=== PATIENT | female | born 1945 | race American Indian/Alaskan Native ===

== ENCOUNTER 2017-04-29 13:27 | Day surgery (SDC) | payer MEDICARE ==
--- NOTE | 2017-04-29 14:47 | Anesthesia Day of Surgery ---
Anesthesia Day of Surgery - Day of Surgery Patient Examined: Yes Patient H&P Reviewed: Yes Patient is NPO: Yes
--- NOTE | 2017-04-29 14:47 | Anesthesia Consultation ---
Anesthesia Consult and Med Hx Date of service: 04/29/17 - Airway Anesthetic Teeth Evaluation: Dentures ROM Head & Neck: Adequate Mental/Hyoid Distance: Adequate Mallampati Class: Class I Intubation Access Assessment: Good - Pulmonary Exam CTA: Yes - Cardiac Exam Cardiac Exam: RRR - Pre-Operative Health Status ASA Pre-Surgery Classification: ASA2 Proposed Anesthetic Plan: MAC - Cardiovascular System Hx Hypertension: Yes Hx Heart Murmur: Yes - Gastrointestinal Hx Gastroesophageal Reflux Disease: Yes - Additional Comments Anesthesia Medical History Comments: hypercholesterolemia
[2017-04-29] MEDS ORDERED: PEPCID IV ONE (14:53)
[2017-04-29] MEDS ORDERED: PEPCID IV NR (15:00)
[2017-04-29] MEDS ORDERED: NACL 0.9% 1000 ML 1,000 ML IV SCH (15:00)
[2017-04-29] MEDS ORDERED: DIPRIVAN 10 MG/ML IV ONE (15:41)
[2017-04-29 16:28] VITALS: BP 144/76
--- NOTE | 2017-04-29 16:43 | Operative Report ---
Operative Report Operative Report: Date: 04/29/2017 Operative Report: Date of procedure: 04/29/2017 Procedure: Esophagogastroduodenoscopy with wire guided Savory dilation of the esophagus. Attending physician: David Klein MD Insulator Tester: David Klein MD Indication: Patient is a 71 -year-old fmale who presented with a history of dysphagia and gerd. An upper endoscopy is done to evaluate patient, so that treatment may be directed based on the findings. Consent: Informed consent was obtained after advising the patient and family regarding nature of this procedure, its indications, potential benefits as well as possible complications including but not limited to bleeding perforation and adverse reaction to medication, infection as well as other cardiopulmonary complications. An informed written and verbal consent was then obtained after due opportunity was provided for questions and answers. Monitoring: Patient was monitored continuously with pulse oximetry and electrocardiographic recordings as well as blood pressure recordings. Vital signs remained stable throughout this procedure with no untoward events. Preoperative assessment: Patient was assessed immediately prior to this procedure for capacity to tolerate monitored anesthesia care and moderate sedation as well as general anesthesia. Patient's ASA classification is 3, Mallampati class is 2, Hyomental distance is 3. Instrument: [employer] video endoscope Controlled radial expansion balloon up to 8 mm Medications: Propofol given intravenously in divided doses. For details please refer to anesthesia records. Description of procedure: Patient was placed in the left lateral decubitus position after achieving sedation, the endoscope was introduced into the esophagus under direct vision and advanced into the stomach. It was further advanced to the second portion of the duodenum. It was subsequently withdrawn with careful inspection of all mucosal surfaces with the following findings. Findings: Esophagus was mildly tortuous. There was a gastroesophageal junction ring which was dilated with a 45 [place] savory dilator using a guidewire. There were multiple erosions in the gastric antrum and body. There were 2 discrete small ulcers that were clean-based in the gastric antrum. The duodenum was normal to the second portion. 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 Erosive gastritis. Gastric ulcers. Plan: Continue treatment with proton pump inhibitors. Maintain antireflux measures. Follow pathology report and direct additional treatment based on the pathology report. Avoid non-steroidal use as needed. Consider repeat endoscopy in 2-3 months to check for healing of the gastric ulcer.
--- NOTE | 2017-04-29 16:44 | Discharge Summary ---
Short Stay Discharge Plan Activity: advance as tolerated Weight Bearing Status: Weight Bear as Tolerated Diet: regular Additional Instructions: Post Sedation D/C Instructions When you return home you may resume your regular diet unless otherwise directed. -Go directly home from the hospital and rest quietly. You may resume normal activities tomorrow. -Do NOT drive, return to work, operate any machinery or make any important personal or business decisions today. -Do NOT drink any alcohol or take nerve or sleeping drugs. They add to the effects of the medicine still present in your body. Follow up with Dr. Klein in 2 weeks to obtain pathology results and treatment plan. Follow up with: KHRIS MANZO [Other] - 7 Days
--- NOTE | 2017-04-29 18:01 | Post Anesthesia Evaluation ---
- Post Anesthesia Evaluation Patient Participated: Yes Airway Patent: Yes Stable Respiratory Function: Yes Temp > 96.8F: Yes Pain Manageable: Yes Adequeate Hydration: Yes Anesthesia Complications: No
== END 2017-04-29 13:28 | disposition home or self-care (01) ==
LOC: GIO 13:27
PROVIDERS: ATTEND Internal Medicine Gastroenterology
DX: K21.9 Gastro-esophageal reflux disease without esophagitis (principal); K22.8 Other specified diseases of esophagus; K29.60 Other gastritis without bleeding; K25.9 Gastric ulcer, unspecified as acute or chronic, without hemorrhage or perforation; I10 Essential (primary) hypertension; E78.00 Pure hypercholesterolemia, unspecified; Z90.89 Acquired absence of other organs; Z79.899 Other long term (current) drug therapy; Z79.82 Long term (current) use of aspirin; Z90.49 Acquired absence of other specified parts of digestive tract
CPT/HCPCS: 43239; 43248; 88305; 88342; J2704